=== PATIENT | male | born 1965 | race Asian ===

== ENCOUNTER 2022-08-23 11:31 | Emergency (ER) | payer BC ==
[~2022-08-23] VITALS: Ht 172.7 cm; Wt 68.1 kg
[2022-08-23] MEDS ORDERED: KETOROLAC TROMETH 60MG/2ML VIAL IM ONE (12:00)
[2022-08-23] MEDS ORDERED: IBUP800T27 PO (13:04)
[2022-08-23 18:48] LABS: Urine Bacteria NONE SEEN /hpf (None Seen); Urine Blood Negative /uL (Negative); Urine Hyaline Cast FEW /lpf (0 - 2); Urine Mucus FEW (None Seen); Urine Specific Gravity 1.019 (1.001-1.035); Urine WBC 2 /hpf (0 - 3)
[2022-08-23 19:02] VITALS: BP 124/88
== END 2022-08-23 19:05 | disposition home or self-care (01) ==
LOC: ER 11:31
DX: S29.011A Strain of muscle and tendon of front wall of thorax, initial encounter (principal); X50.1XXA Overexertion from prolonged static or awkward postures, initial encounter; Y93.89 Activity, other specified; Y92.89 Other specified places as the place of occurrence of the external cause; Y99.8 Other external cause status
CPT/HCPCS: 71046; 81001; 96372; 99284; J1885